=== PATIENT | male | born 1990 | race Caucasian/White ===

== ENCOUNTER 2018-10-25 19:24 | Emergency (ER) | payer MEDICAID, OTHER, SELFPAY ==
[~2018-10-25] VITALS: Ht 190.5 cm; Wt 72.6 kg
[2018-10-25 20:18] LABS: BASOPHILS # (AUTO) 0.06 x10^3/uL (0-0.1); BASOPHILS % (AUTO) 1 % (0-1); EOSINOPHILS # (AUTO) 0.15 x10^3/uL (0-0.4); EOSINOPHILS % (AUTO) 2 % (1-7); LYMPHOCYTES # (AUTO) 1.05 x10^3/uL (1-3.4); LYMPHOCYTES % (AUTO) 16 % (22-44); MD NO; MEAN CORPUSCULAR HEMOGLOBIN 28.4 pg (27.5-34.5); MEAN CORPUSCULAR HGB CONC 33.7 g/dL (33.2-36.2); MEAN CORPUSCULAR VOLUME 84.2 fL (81-97); MEAN PLATELET VOLUME 9.8 fL (7.4-10.4); MONOCYTES # (AUTO) 0.49 x10^3/uL (0.2-0.8); MONOCYTES % (AUTO) 7 % (2-9); NEUTROPHILS # (AUTO) 4.99 x10^3/uL (1.8-6.8); NEUTROPHILS % (AUTO) 74 % (42-75); PLATELET COUNT 266 x10^3/uL (130-400); RED BLOOD COUNT 5.71 x10^6/uL (4.38-5.82); RED CELL DISTRIBUTION WIDTH 13.2 % (9.4-14.8)
[2018-10-25 20:30] LABS: ALANINE AMINOTRANSFERASE 17 U/L (12-78); ALBUMIN 4.6 g/dL (3.4-5.0); ANION GAP 5 mmol/L (5-15); CALCIUM 9.2 mg/dL (8.5-10.1); CHLORIDE 106 mmol/L (98-107); CREATININE 1.07 mg/dL (0.7-1.3)
[2018-10-25 20:32] LABS: ALKALINE PHOSPHATASE 53 U/L (45-117); BILIRUBIN,TOTAL 0.7 mg/dL (0.2-1.0); TOTAL PROTEIN 7.9 g/dL (6.4-8.2)
--- NOTE | 2018-10-25 20:42 | NUR ---
FROM LOBBY TO ROOM AT THIS TIME.
[2018-10-25 20:52] VITALS: BP 118/83
--- NOTE | 2018-10-25 20:53 | NUR ---
this is a 28yo male that came in today for epigastric pain and reports dark tarry stool this am. pt reports eating being "uncomfortable." pt is resting on gurney laughing and talking with sister. pt connected to monitors at this time, vss. no further needs expressed at this time. call light within reach
--- NOTE | 2018-10-25 21:11 | NUR ---
AT BEDSIDE FOR ASSESSMENT, AWAITING ORDERS AT THIS TIME
[2018-10-25] MEDS ORDERED: OMEPRAZOLE 20 MG CAPSULE.DR ONE (21:23)
[2018-10-25] MEDS ORDERED: MAALOX/HYOSCYAMINE/LIDOCAINE 45 ML BTL ONE (21:23)
--- NOTE | 2018-10-25 21:27 | NUR ---
PT MEDICATED PER APR FOR EPIGASTRIC PAIN, AWAITING DC ORDERS AT THIS TIME
[2018-10-25] MEDS ORDERED: MAALOX/HYOSCYAMINE/LIDOCAINE 45 ML BTL PO ONE (21:30)
[2018-10-25] MEDS ORDERED: OMEPRAZOLE 20 MG CAPSULE.DR PO SCH (21:30)
== END 2018-10-25 21:35 | disposition home or self-care (01) ==
LOC: ED 21:29
DX: K29.00 Acute gastritis without bleeding (principal); J45.909 Unspecified asthma, uncomplicated; F17.200 Nicotine dependence, unspecified, uncomplicated
CPT/HCPCS: 36415; 80053; 83690; 85025; 99283